=== PATIENT | female | born 1970 | race Caucasian/White ===

== ENCOUNTER 2023-08-24 15:10 | Outpatient (RCR) | payer OTHER ==
[~2023-08-24 15:10] MED LIST: ASPIRIN E.C. 8181 MG PO; GLUCOPHAGE XR500 M1 PO; PRINIVIL10 MG PO
== END 2023-09-13 | disposition home or self-care (01) ==
LOC: WSOH
DX: S80.02XD Contusion of left knee, subsequent encounter (principal); M70.52 Other bursitis of knee, left knee; W01.0XXD Fall on same level from slipping, tripping and stumbling without subsequent striking against object, subsequent encounter; E78.00 Pure hypercholesterolemia, unspecified; I10 Essential (primary) hypertension; E11.9 Type 2 diabetes mellitus without complications; F32.A Depression, unspecified; F41.9 Anxiety disorder, unspecified; Y99.0 Civilian activity done for income or pay

== ENCOUNTER → 2024-04-15 | Outpatient (CLI) | payer BC | LOC: COL.RAD 08:53 | DX: Z12.2 Encounter for screening for malignant neoplasm of respiratory organs (principal); Z71.6 Tobacco abuse counseling; F17.200 Nicotine dependence, unspecified, uncomplicated ==